=== PATIENT | female | born 1975 | race American Indian/Alaskan Native ===

== ENCOUNTER 2016-11-26 09:30 | Emergency (ER) | payer OTHER ==
[2016-11-26 09:52] VITALS: BP 118/84
[2016-11-26] MEDS ORDERED: TORADOL IM ONE (10:52)
[2016-11-26] MEDS ORDERED: FLEXERIL PO ONE (10:52)
--- NOTE | 2016-11-26 10:53 | XRay Report ---
RIGHT ANKLE, 3 views: History: Right ankle pain and swelling. Findings: Mild soft tissue swelling is identified. No acute osseous abnormality or joint pathology is identified. The fifth metatarsal base is intact. Moderate plantar spur is noted. Impression: Soft tissue swelling. No acute osseous injury.
--- NOTE | 2016-11-26 10:57 | Emergency Department Report ---
HPI - General Chief Complaint: Extremity Injury, Lower Time Seen by Provider: 11/26/16 10:16 - HPI HPI: Patient is a 41-year-old female presents to ED complaining of right ankle pain 4 days. Patient states" ankle pain began on Saturday while she was at work. Patient states pain is gone progressively worse. Patient states pain is localized to the ankle and foot. Patient denies any trauma or fall or injury to the foot. Patient states pain is worse with bearing weight on that foot. Patient denies fevers/chills/nausea/vomiting/abdominal pain or any other problems. Patient states less pressure. As 11/19/2016 and denies being . He states she has not taken any medication since they began. ED Past Medical Hx - Past Medical History Previous Medical History?: Yes Additional medical history: Childbirth - Surgical History Past Surgical History?: Yes Additional Surgical History: x 4 - Social History Smoking Status: Never Smoker Substance Use Type: Alcohol, Non Opiate Pain, Other - Medications Home Medications: Home Medications Medication Instructions Recorded Confirmed Last Taken Type Albuterol Sulfate [Proventil HFA] 6.7 gm IH Q4H PRN #1 hfa.aer.ad 10/15/13 Unknown Rx Guaifenesin/Codeine Phosphate 10 ml PO Q6H PRN #100 ml 10/15/13 Unknown Rx [Cheratussin AC Syrup] Erythromycin [Erythromycin Ophth 1 applic OU TID #1 tube 04/29/15 Unknown Rx Oint] Phenylephrine/Dm/Acetaminop/GG 5 ml PO TID #1 bottle 04/29/15 Unknown Rx [Mucinex Qrxi-Ukp-Yzhusdivud Lq] Cyclobenzaprine [Flexeril 10 MG 10 mg PO QHS #16 tablet 11/26/16 Unknown Rx TAB] Ibuprofen [Motrin] 800 mg PO Q8HR #30 tablet 11/26/16 Unknown Rx ED Review of Systems ROS: Stated complaint: RT FEET/ANKLE SWOLLEN/PAIN Other details as noted in HPI Constitutional: denies: chills, fever Eyes: denies: eye pain, eye discharge, vision change ENT: denies: ear pain, throat pain Respiratory: denies: cough, shortness of breath, wheezing Cardiovascular: denies: chest pain, palpitations Endocrine: no symptoms reported Gastrointestinal: denies: abdominal pain, nausea, diarrhea Genitourinary: denies: urgency, dysuria, frequency, hematuria, discharge Musculoskeletal: arthralgia (ankle). denies: back pain, joint swelling Skin: denies: rash, lesions Neurological: denies: headache, weakness, paresthesias Psychiatric: denies: anxiety, depression Hematological/Lymphatic: denies: easy bleeding, easy bruising Physical Exam - Physical Exam Vital Signs: Vital Signs 11/26/16 09:49 Temperature 98.1 F Pulse Rate 61 Respiratory 16 Rate Blood Pressure 118/84 O2 Sat by Pulse 100 Oximetry Physical Exam: GENERAL: Alert and oriented x3, no apparent distress, Normal Gait, atraumatic. HEAD: Head is normocephalic and a-traumatic. EYES: Extra ocular muscles are intact. Pupils are equal, round, and reactive to light and accommodation. NECK: Supple. Non edematous, No carotid bruits. No lymphadenopathy or thyromegaly. No C-spine tenderness LUNGS: Symetrical with respiration, No wheezing, no rales or crackles, CTAB. HEART: S1, S2 present, regular rate and rhythm without murmur, no rubs, no gallops. EXTREMITIES/MUSCULOSKELETAL: No cyanosis, clubbing, rash, lesions or edema. Full ROM bilaterally. UE/LE Pulses 2+ bilaterally. LE and UE 5+ strength bilaterally, straight leg raise negative bilaterally. Tenderness to palpation of right ankle. Full range of motion. Patient has no loss of sensation on the foot. Tenderness bilaterally. No fractures or dislocation noted, no bruising or ecchymosis on the ankle NEUROLOGIC: No focal Deficit, Cranial nerves II through XII are grossly intact. No loss of sensation, PSYCHIATRIC: Mood is congruent with affect, denies suicidal or homicidal ideations. SKIN: Warm and dry, No lesions, No ulceration or induration present. ED Course Vital Signs 11/26/16 09:49 Temperature 98.1 F Pulse Rate 61 Respiratory 16 Rate Blood Pressure 118/84 O2 Sat by Pulse 100 Oximetry ED Medical Decision Making - Medical Decision Making 41-year-old female presents with right ankle pain ED course: Patient received Toradol and Flexeril for pain. X-rays of the ankle and foot ordered. X-ray shows soft tissue swelling, no serious acute injury, no dislocation, no fractures. Mild plantar spur noted Discussed findings with patient. Discussed the patient to rest her ankle and foot for the next couple of days. Discussed the patient will follow up with primary care physician as needed. Discussed rest protocol. Instructions given. Discussed rest and ice and elevate and cold for the next couple of days. Patient is in no acute distress. Vital signs are stable. Patient states she understands instructions given and will follow-up. Critical care attestation.: If time is entered above; I have spent that time in minutes in the direct care of this critically ill patient, excluding procedure time. ED Disposition Clinical Impression: Arthralgia of ankle, right Right ankle pain Qualifiers: Chronicity: acute Qualified Code(s): M25.571 - Pain in right ankle and joints of right foot Disposition: DISCHARGED TO HOME OR SELFCARE Is pt being admited?: No Does the pt Need Aspirin: No Condition: Stable Instructions: Arthralgia (ED), Heat Pack Application (ED), RICE Therapy (ED) Prescriptions: Cyclobenzaprine [Flexeril 10 MG TAB] 10 mg PO QHS #16 tablet Ibuprofen [Motrin] 800 mg PO Q8HR #30 tablet Referrals: PRIMARY CAREMD [Primary Care Provider] - 3-5 Days [facility] [Outside] - 3-5 Days [facility] [Outside] - 3-5 Days [facility] [Outside] - 3-5 Days Forms: Accompanied Note, Work/School Release Form(ED) Time of Disposition: 11:01
== END 2016-11-26 11:59 | disposition home or self-care (01) ==
LOC: ED 09:30
DX: M25.571 Pain in right ankle and joints of right foot (principal)
CPT/HCPCS: 73610; 96372; 99284; J1885

== ENCOUNTER 2019-05-01 03:04 | Emergency (ER) | payer SELFPAY ==
[2019-05-01 03:13] VITALS: BP 133/82
[2019-05-01] MEDS ORDERED: IPRATROPIUM/ALBUTEROL SULFATE 3 ML AMPUL.NEB IH ONE (03:17)
[2019-05-01] MEDS ORDERED: dexAMETHasone 20 MG/5 ML VIAL IM ONE (03:29)
--- NOTE | 2019-05-01 03:32 | Emergency Department Report ---
ED Shortness of Breath HPI - General Chief Complaint: Dyspnea/Respdistress Stated Complaint: SHORTNESS OF BREATH Time Seen by Provider: 05/01/19 03:28 Source: patient Mode of arrival: Ambulatory Limitations: No Limitations - History of Present Illness Initial Comments: 44-year-old -Citizen Of [place] female with a past medical history of asthma comes in for shortness of breath 3 days. Patient reports she's been using her inhaler. Patient reports that she had cold-like symptoms prior to her shortness of breath. Patient states she's been given herself inhale treatments but not helping much. Patient denies any fever chills no nausea no vomiting. MD Complaint: shortness of breath Onset/Timin -: days(s) - Related Data Previous Rx's Medication Instructions Recorded Last Taken Type Albuterol Sulfate [Proventil HFA] 6.7 gm IH Q4H PRN #1 hfa.aer.ad 10/15/13 Unknown Rx Guaifenesin/Codeine Phosphate 10 ml PO Q6H PRN #100 ml 10/15/13 Unknown Rx [Cheratussin AC Syrup] Erythromycin [Erythromycin Ophth 1 applic OU TID #1 tube 04/29/15 Unknown Rx Oint] Phenylephrine/Dm/Acetaminop/GG 5 ml PO TID #1 bottle 04/29/15 Unknown Rx [Mucinex Azto-Gtn-Dicvxiavxp Lq] Cyclobenzaprine [Flexeril 10 MG 10 mg PO QHS #16 tablet 11/26/16 Unknown Rx TAB] Ibuprofen [Motrin] 800 mg PO Q8HR #30 tablet 11/26/16 Unknown Rx Albuterol Sulfate [Albuterol 0.63% 0.63 mg IH TID PRN #270 ml 05/01/19 Unknown Rx NEBS] Prednisone [predniSONE 10 mg 10 mg PO .TAPER #1 tab.ds.pk 05/01/19 Unknown Rx (6-Day Pack, 21 Tabs)] Allergies Allergy/AdvReac Type Severity Reaction Status Date / Time No Known Allergies Allergy Verified 05/01/19 03:29 ED Review of Systems ROS: Stated complaint: SHORTNESS OF BREATH Other details as noted in HPI ED Past Medical Hx - Past Medical History Previous Medical History?: Yes Hx Asthma: Yes Additional medical history: Childbirth - Surgical History Past Surgical History?: Yes Additional Surgical History: x 4 - Social History Smoking Status: Never Smoker Substance Use Type: None - Medications Home Medications: Home Medications Medication Instructions Recorded Confirmed Last Taken Type Albuterol Sulfate [Proventil HFA] 6.7 gm IH Q4H PRN #1 hfa.aer.ad 10/15/13 Unknown Rx Guaifenesin/Codeine Phosphate 10 ml PO Q6H PRN #100 ml 10/15/13 Unknown Rx [Cheratussin AC Syrup] Erythromycin [Erythromycin Ophth 1 applic OU TID #1 tube 04/29/15 Unknown Rx Oint] Phenylephrine/Dm/Acetaminop/GG 5 ml PO TID #1 bottle 04/29/15 Unknown Rx [Mucinex Znzj-Pca-Pqydbrywdd Lq] Cyclobenzaprine [Flexeril 10 MG 10 mg PO QHS #16 tablet 11/26/16 Unknown Rx TAB] Ibuprofen [Motrin] 800 mg PO Q8HR #30 tablet 11/26/16 Unknown Rx Albuterol Sulfate [Albuterol 0.63% 0.63 mg IH TID PRN #270 ml 05/01/19 Unknown Rx NEBS] Prednisone [predniSONE 10 mg 10 mg PO .TAPER #1 tab.ds.pk 05/01/19 Unknown Rx (6-Day Pack, 21 Tabs)] ED Physical Exam - General Limitations: No Limitations General appearance: alert, in no apparent distress, other (not able to complete sentences secondary shortness of breath) - Head Head exam: Present: atraumatic, normocephalic - Eye Eye exam: Present: normal appearance - ENT ENT exam: Present: mucous membranes moist - Neck Neck exam: Present: normal inspection - Respiratory Respiratory exam: Present: decreased breath sounds - Cardiovascular Cardiovascular Exam: Present: regular rate, normal rhythm. Absent: systolic murmur, diastolic murmur, rubs, gallop - GI/Abdominal GI/Abdominal exam: Present: soft, normal bowel sounds - Neurological Exam Neurological exam: Present: alert, oriented X3, normal gait - Psychiatric Psychiatric exam: Present: normal affect, normal mood - Skin Skin exam: Present: warm, dry, intact, normal color. Absent: rash ED Course Vital Signs 05/01/19 05/01/19 05/01/19 03:10 03:12 03:16 Temperature 97.9 F 97.9 F Pulse Rate 79 74 Respiratory 20 20 Rate Blood Pressure 133/82 Blood Pressure 133/82 [Right] O2 Sat by Pulse 96 98 Oximetry - Reevaluation(s) Reevaluation #1: 05/01/19 05:53 Patient reports she feels much better after having second round of albuterol. ED Medical Decision Making - Medical Decision Making 44-year-old -Citizen Of [place] female with a past medical history of asthma comes in for shortness of breath 3 days. Patient reports she's been using her inhaler. Patient reports that she had cold-like symptoms prior to her shortness of breath. Patient states she's been given herself inhale treatments but not helping much. Patient denies any fever chills no nausea no vomiting. Patient given DuoNeb and dexamethasone 10 mg IM. Critical care attestation.: If time is entered above; I have spent that time in minutes in the direct care of this critically ill patient, excluding procedure time. ED Disposition Clinical Impression: Asthma Disposition: DC-01 TO HOME OR SELFCARE Is pt being admited?: No Does the pt Need Aspirin: No Condition: Stable Instructions: Asthma (ED) Prescriptions: Albuterol Sulfate [Albuterol 0.63% NEBS] 0.63 mg IH TID PRN #270 ml PRN Reason: Wheezing Prednisone [predniSONE 10 mg (6-Day Pack, 21 Tabs)] 10 mg PO .TAPER #1 tab.ds.pk Referrals: PRIMARY CARE, [Primary Care Provider] - 3-5 Days Your,provider [Other] - 3-5 Days Forms: Work/School Release Form(ED)
[2019-05-01] MEDS ORDERED: ONDANSETRON 4 MG ODT TAB PO ONE (04:01)
[2019-05-01] MEDS ORDERED: ONDANSETRON 4 MG ODT TAB ONE (04:04)
[2019-05-01] MEDS ORDERED: ALBUTEROL 2.5 MG/3 ML NEBU IH ONE (05:05)
== END 2019-05-01 05:52 | disposition home or self-care (01) ==
LOC: ED 03:04
DX: J45.909 Unspecified asthma, uncomplicated (principal); Z79.899 Other long term (current) drug therapy
CPT/HCPCS: 96372; 99283; J1100; Q0162

== ENCOUNTER 2022-01-27 14:58 | Emergency (ER) | payer SELFPAY ==
--- NOTE | 2022-01-27 15:45 | XRay Report ---
CHEST 2 VIEWS INDICATION / CLINICAL INFORMATION: Chest Pain. FINDINGS: SUPPORT DEVICES: None. HEART / MEDIASTINUM: No significant abnormality. LUNGS / PLEURA: No significant pulmonary or pleural abnormality. No pneumothorax. ADDITIONAL FINDINGS: No significant additional findings. IMPRESSION: 1. No acute findings. Signer Name: Jose Boles MD Signed: 01/27/2022 3:40 PM Workstation Name: [employer]
[2022-01-27 16:20] LABS: Basophils # (Auto) 0.1 K/mm3 (0.0-0.1); Basophils % (Auto) 1.3 % (0.0-1.8); Eosinophils # (Auto) 0.1 K/mm3 (0.0-0.4); Eosinophils % (Auto) 0.9 % (0.0-4.3); Hematocrit 40.2 % (30.3-42.9); Hemoglobin 12.8 gm/dl (10.1-14.3); Lymphocytes # (Auto) 3.1 K/mm3 (1.2-5.4); Lymphocytes % (Auto) 42.1 % (13.4-35.0); Mean Corpuscular HGB Conc 32 % (30-34); Mean Corpuscular Volume 82 fl (79-97); Monocytes # (Auto) 0.5 K/mm3 (0.0-0.8); Platelet Count 457 K/mm3 (140-440); Red Blood Count 4.89 M/mm3 (3.65-5.03); Red Cell Distribution Width 15.3 % (13.2-15.2)
[2022-01-27 16:25] LABS: INR 0.88 (0.87-1.13)
[2022-01-27 16:26] LABS: Partial Thromboplastin Time 30.8 Sec. (24.2-36.6)
[2022-01-27 16:29] LABS: Alanine Aminotransferase 16 units/L (7-56); Albumin 4.1 g/dL (3.9-5); Blood Urea Nitrogen 11 mg/dL (7-17); Calcium 9.3 mg/dL (8.4-10.2); Hemolysis Index 2
[2022-01-27 16:41] LABS: BUN/Creatinine Ratio 18
[2022-01-27] MEDS ORDERED: predniSONE 20 MG TAB PO ONE (19:43)
[2022-01-27] MEDS ORDERED: IPRATROPIUM 0.02% NEBU 2.5 ML IH ONE (19:43)
[2022-01-27] MEDS ORDERED: ALBUTEROL 2.5 MG/3 ML NEBU IH ONE (19:43)
--- NOTE | 2022-01-27 19:46 | Emergency Department Report ---
ED Asthma HPI - General Chief Complaint: Chest Pain Stated Complaint: ASTHMA ATTACK Time Seen by Provider: 01/27/22 19:34 Source: patient Mode of arrival: Ambulatory Limitations: No Limitations - History of Present Illness Initial Comments: 46-year female the past medical history of asthma without previous intubations and obesity resents to the hospital complaining of wheezing, shortness of breath, chest pain secondary to asthma. Patient came from work and attempted to use her inhaler with minimal improvement. Patient complains of cough productive of clear sputum. Patient complains of mild chest tightness that is worse with deep inspiration and coughing. No reports of fevers, calf tenderness, leg edema, or previous intubations - Related Data Previous Rx's Medication Instructions Recorded Last Taken Type Albuterol Sulfate [Proventil HFA] 6.7 gm IH Q4H PRN #1 hfa.aer.ad 10/15/13 Unknown Rx Guaifenesin/Codeine Phosphate 10 ml PO Q6H PRN #100 ml 10/15/13 Unknown Rx [Cheratussin AC Syrup] Erythromycin [Erythromycin Ophth 1 applic OU TID #1 tube 04/29/15 Unknown Rx Oint] Phenylephrine/Dm/Acetaminop/GG 5 ml PO TID #1 bottle 04/29/15 Unknown Rx [Mucinex Svsx-Ixc-Xqaluypkln Lq] Cyclobenzaprine [Flexeril 10 MG 10 mg PO QHS #16 tablet 11/26/16 Unknown Rx TAB] Ibuprofen [Motrin] 800 mg PO Q8HR #30 tablet 11/26/16 Unknown Rx Albuterol Sulfate [Albuterol 0.63% 0.63 mg IH TID PRN #270 ml 05/01/19 Unknown Rx NEBS] ALBUTEROL NEB's [Proventil 0.083% 2.5 mg IH TID PRN #60 neb 01/27/22 Unknown Rx NEBS] Albuterol Sulfate [Proventil Hfa] 2 puff IH Q4HR PRN #1 inh 01/27/22 Unknown Rx Prednisone [predniSONE 10 mg 10 mg PO .TAPER #1 tab.ds.pk 01/27/22 Unknown Rx (6-Day Pack, 21 Tabs)] Allergies Allergy/AdvReac Type Severity Reaction Status Date / Time No Known Allergies Allergy Verified 01/27/22 15:08 ED Review of Systems ROS: Stated complaint: ASTHMA ATTACK Other details as noted in HPI Comment: All other systems reviewed and negative ED Past Medical Hx - Past Medical History Hx Asthma: Yes Additional medical history: Childbirth - Surgical History Additional Surgical History: x 4 - Social History Smoking Status: Never Smoker Substance Use Type: None - Medications Home Medications: Home Medications Medication Instructions Recorded Confirmed Last Taken Type Albuterol Sulfate [Proventil HFA] 6.7 gm IH Q4H PRN #1 hfa.aer.ad 10/15/13 Unknown Rx Guaifenesin/Codeine Phosphate 10 ml PO Q6H PRN #100 ml 10/15/13 Unknown Rx [Cheratussin AC Syrup] Erythromycin [Erythromycin Ophth 1 applic OU TID #1 tube 04/29/15 Unknown Rx Oint] Phenylephrine/Dm/Acetaminop/GG 5 ml PO TID #1 bottle 04/29/15 Unknown Rx [Mucinex Yops-Swo-Zfobqzuvom Lq] Cyclobenzaprine [Flexeril 10 MG 10 mg PO QHS #16 tablet 11/26/16 Unknown Rx TAB] Ibuprofen [Motrin] 800 mg PO Q8HR #30 tablet 11/26/16 Unknown Rx Albuterol Sulfate [Albuterol 0.63% 0.63 mg IH TID PRN #270 ml 05/01/19 Unknown Rx NEBS] ALBUTEROL NEB's [Proventil 0.083% 2.5 mg IH TID PRN #60 neb 01/27/22 Unknown Rx NEBS] Albuterol Sulfate [Proventil Hfa] 2 puff IH Q4HR PRN #1 inh 01/27/22 Unknown Rx Prednisone [predniSONE 10 mg 10 mg PO .TAPER #1 tab.ds.pk 01/27/22 Unknown Rx (6-Day Pack, 21 Tabs)] ED Physical Exam - General Limitations: No Limitations - Other Other exam information: General: No acute distress Head: Atraumatic Eyes: normal appearance ENT: Moist mucous membranes Neck: Normal appearance, no midline tenderness Chest: Bilateral wheezing, cough with deep inspiration CV: Regular rate and rhythm Abdomen: Soft, normal bowel sounds, nontender, nondistended, no rebound or guarding Back: Normal inspection Extremity: Normal inspection, full range of motion, no calf tenderness or leg edema Neuro: Alert O x 3, no facial asymmetry, speech clear, no gross motor sensory deficit Psych: Appropriate behavior Skin: No rash ED Course Vital Signs 01/27/22 01/27/22 01/27/22 15:06 20:10 20:15 Temperature 97 F L 98.1 F Pulse Rate 89 82 Pulse Rate [ 88 Bilateral Throughout] Respiratory 18 22 Rate Respiratory 20 Rate [Bilateral Throughout] Blood Pressure 117/72 135/92 [Right] O2 Sat by Pulse 97 97 Oximetry - Reevaluation(s) Reevaluation #1: 01/27/22 22:00 Patient reports feeling much better. Tolerating ambulation without difficulty or hypoxia. Will be discharged with [facility] ED Medical Decision Making - Lab Data Result diagrams: 01/27/22 15:19 01/27/22 15:19 Lab Results 01/27/22 01/27/22 01/27/22 Range/Units 15:19 15:19 15:19 WBC 7.5 (4.5-11.0) K/mm3 RBC 4.89 (3.65-5.03) M/mm3 Hgb 12.8 (10.1-14.3) gm/dl Hct 40.2 (30.3-42.9) % MCV 82 (79-97) fl MCH 26 L (28-32) pg MCHC 32 (30-34) % RDW 15.3 H (13.2-15.2) % Plt Count 457 H (140-440) K/mm3 Lymph % (Auto) 42.1 H (13.4-35.0) % [place] % (Auto) Floor Surfacer Eos % (Auto) 0.9 (0.0-4.3) % Baso % (Auto) 1.3 (0.0-1.8) % Lymph # (Auto) 3.1 (1.2-5.4) K/mm3 [place] # (Auto) 0.5 (0.0-0.8) K/mm3 Eos # (Auto) 0.1 (0.0-0.4) K/mm3 Baso # (Auto) 0.1 (0.0-0.1) K/mm3 Seg Neutrophils % Floor Surfacer Seg Neutrophils # 3.7 (1.8-7.7) K/mm3 PT 13.2 (12.2-14.9) Sec. INR 0.88 (0.87-1.13) APTT 30.8 (24.2-36.6) Sec. Sodium 141 (137-145) mmol/L Potassium 3.5 L (3.6-5.0) mmol/L Chloride 105.2 (98-107) mmol/L Carbon Dioxide 24 (22-30) mmol/L Anion Gap 15 mmol/L BUN 11 (7-17) mg/dL Creatinine 0.6 (0.6-1.2) mg/dL Estimated GFR > 60 ml/min BUN/Creatinine Ratio 18 % Glucose 110 H (65-100) mg/dL Calcium 9.3 (8.4-10.2) mg/dL Total Bilirubin 0.60 (0.1-1.2) mg/dL AST 18 (5-40) units/L ALT 16 (7-56) units/L Alkaline Phosphatase 84 (35-129) units/L Troponin T < 0.010 (0.00-0.029) ng/mL Total Protein 7.9 (6.3-8.2) g/dL Albumin 4.1 (3.9-5) g/dL Albumin/Globulin Ratio 1.1 % // Range/Units 17:03 WBC (4.5-11.0) K/mm3 RBC (3.65-5.03) M/mm3 Hgb (10.1-14.3) gm/dl Hct (30.3-42.9) % MCV (79-97) fl MCH (28-32) pg MCHC (30-34) % RDW (13.2-15.2) % Plt Count (140-440) K/mm3 Lymph % (Auto) (13.4-35.0) % [place] % (Auto) Eos % (Auto) (0.0-4.3) % Baso % (Auto) (0.0-1.8) % Lymph # (Auto) (1.2-5.4) K/mm3 [place] # (Auto) (0.0-0.8) K/mm3 Eos # (Auto) (0.0-0.4) K/mm3 Baso # (Auto) (0.0-0.1) K/mm3 Seg Neutrophils % Seg Neutrophils # (1.8-7.7) K/mm3 PT (12.2-14.9) Sec. INR (0.87-1.13) APTT (24.2-36.6) Sec. Sodium (137-145) mmol/L Potassium (3.6-5.0) mmol/L Chloride (98-107) mmol/L Carbon Dioxide (22-30) mmol/L Anion Gap mmol/L BUN (7-17) mg/dL Creatinine (0.6-1.2) mg/dL Estimated GFR ml/min BUN/Creatinine Ratio % Glucose (65-100) mg/dL Calcium (8.4-10.2) mg/dL Total Bilirubin (0.1-1.2) mg/dL AST (5-40) units/L ALT (7-56) units/L Alkaline Phosphatase (35-129) units/L Troponin T < 0.010 (0.00-0.029) ng/mL Total Protein (6.3-8.2) g/dL Albumin (3.9-5) g/dL Albumin/Globulin Ratio % - EKG Data -: EKG Interpreted by Mi EKG shows normal: sinus rhythm, ST-T waves (No STEMI) Rate: normal - Radiology Data Radiology results: report reviewed CHEST 2 VIEWS INDICATION / CLINICAL INFORMATION: Chest Pain. FINDINGS: SUPPORT DEVICES: None. HEART / MEDIASTINUM: No significant abnormality. LUNGS / PLEURA: No significant pulmonary or pleural abnormality. No pneumothorax. ADDITIONAL FINDINGS: No significant additional findings. IMPRESSION: 1. No acute findings. - Medical Decision Making 46-year-old female with a past medical history as without previous intubations presents to the hospital with acute asthma exacerbation. EKG, chest x-ray, labs unremarkable. No sign of hypoxia. Symptoms improved with bronchodilators and steroids. Patient will be discharged on the same with follow-up encouraged - Differential Diagnosis Asthma, bronchitis, pneumonia, MA Critical care attestation.: If time is entered above; I have spent that time in minutes in the direct care of this critically ill patient, excluding procedure time. ED Disposition Clinical Impression: Acute asthma exacerbation Disposition: 01 HOME / SELF CARE / HOMELESS Is pt being admited?: No Does the pt Need Aspirin: No Condition: Stable Instructions: Asthma, Adult Additional Instructions: Take the medication as prescribed. Follow-up with your doctor or doctor/clinic provided. Return if symptoms worsen as indicated by your discharge instructions. Prescriptions: Prednisone [predniSONE 10 mg (6-Day Pack, 21 Tabs)] 10 mg PO .TAPER #1 tab.ds.pk ALBUTEROL NEB's [Proventil 0.083% NEBS] 2.5 mg IH TID PRN #60 neb PRN Reason: Wheezing Albuterol Sulfate [Proventil Hfa] 2 puff IH Q4HR PRN #1 inh PRN Reason: Wheezing Referrals: [facility] [Other] - 3-5 Days GERMAINE REAGAN MD [Staff Physician] - 3-5 Days Time of Disposition: 22:00
[2022-01-27 22:11] VITALS: BP 116/69
--- NOTE | 2022-01-29 10:41 | Electrocardiograph Report ---
[facility] Test Date: 2022-01-27 Test Time: 15:40:50 Pat Name: FALGUNI ARTHUR Department: Room: Gender: F [employer] Test Technician: EDY : 1975 Requested By: MELIZA BANKS Order Number: [id number] Reading MD: Jose Elizalde Measurements Intervals [place] Rate: 78 P: 35 MA: 168 QRS: 24 QRSD: 67 T: 17 QT: 355 QTc: 405 Interpretive Statements Sinus arrhythmia Otherwise normal ECG No previous ECG available for comparison Electronically Signed On 01-29-2022 10:40:44 EDT by Jose Elizalde
== END 2022-01-27 22:11 | disposition home or self-care (01) ==
LOC: ED 14:58
DX: J45.901 Unspecified asthma with (acute) exacerbation (principal); Z79.899 Other long term (current) drug therapy
CPT/HCPCS: 36415; 71046; 80053; 84484; 85025; 85610; 85730; 93005; 94640; 94644; 99284